=== PATIENT | female | born 1985 | race Caucasian/White ===

== ENCOUNTER 2020-09-24 13:01 | Emergency (ER) | payer MEDICAID ==
[2020-09-24] MEDS ORDERED: DOXEPIN 10 MG CAPSULE PO STA (14:23)
[2020-09-24] MEDS ORDERED: predniSONE 20 MG TABLET PO STA (14:23)
--- NOTE | 2020-09-24 14:25 | ED Physician Documentation ---
PD HPI SKIN - Stated complaint Stated Complaint: ALLERGIC REACTION - Chief complaint Chief Complaint: Allergic Rx - History obtained from History obtained from: Patient - Additional information Additional information: 35-year-old woman developed bilateral periorbital edema and eye burning after swimming at the pool yesterday. She is never had this before. No angioedema of the oral area, no shortness of breath. No possibility of . Review of Systems Constitutional: reports: Reviewed and negative Eyes: reports: Reviewed and negative Ears: reports: Reviewed and negative Nose: reports: Reviewed and negative Throat: reports: Reviewed and negative PD PAST MEDICAL HISTORY - Present Medications Home Medications: Ambulatory Orders Medication Instructions Recorded Confirmed Doxepin [SINEquan] 10 mg PO TID PRN #20 cap 09/24/20 predniSONE [Deltasone] 60 mg PO DAILY 5 Days #15 tablet 09/24/20 - Allergies Allergies/Adverse Reactions: Allergies Allergy/AdvReac Type Severity Reaction Status Date / Time No Known Drug Allergies Allergy Verified 09/24/20 13:20 PD ED PE NORMAL - Vitals Vital signs reviewed: Yes - General General: Alert and oriented X 3, No acute distress - HEENT HEENT: PERRL (She has angioedema of the bilateral periorbital area which is mild to moderate, no sign of infection.) - Cardiac Cardiac: RRR, No murmur - Respiratory Respiratory: Clear bilaterally - Abdomen Abdomen: Non tender - Derm Derm: No rash - Neuro Neuro: Alert and oriented X 3, Normal speech Results - Vitals Vitals: Vital Signs - 24 hr 09/24/20 13:20 Temperature 36.5 C Heart Rate 60 Respiratory 16 Rate Blood Pressure 130/66 O2 Saturation 100 Oxygen O2 Source Room air Departure - Departure Disposition: 01 Home, Self Care Clinical Impression: Allergic angioedema Qualifiers: Encounter type: initial encounter Qualified Code(s): T78.3XXA - Angioneurotic edema, initial encounter Condition: Good Record reviewed to determine appropriate education?: Yes Instructions: ED Allergic Reaction General Other Prescriptions: predniSONE [Deltasone] 60 mg PO DAILY 5 Days #15 tablet Doxepin [SINEquan] 10 mg PO TID PRN #20 cap PRN Reason: Itching Comments: Do not drink or drive while taking doxepin, the anti-itching medication. Return if worsening.
[2020-09-24 14:46] VITALS: BP 124/66
== END 2020-09-24 14:46 | disposition home or self-care (01) ==
LOC: ED 13:01
DX: T78.3XXA Angioneurotic edema, initial encounter (principal)
CPT/HCPCS: 99282; 99284; A9270; J7512

== ENCOUNTER 2020-12-26 19:55 | Emergency (ER) | payer MEDICAID ==
[2020-12-26] MEDS ORDERED: SODIUM CHLORIDE 0.9% 1,000 ML IV STA (21:24)
[2020-12-26] MEDS ORDERED: ACETAMINOPHEN 325 MG TABLET PO STA (21:24)
[2020-12-26] MEDS ORDERED: KETOROLAC 15 MG/ML VIAL IVP STA (21:24)
[2020-12-26] MEDS ORDERED: METOCLOPRAMIDE 10 MG/2 ML VIAL IVP STA (21:25)
[2020-12-26] MEDS ORDERED: diphenhydrAMINE INJ 50 MG/ML VIAL IVP STA (21:25)
--- NOTE | 2020-12-26 21:35 | ED Physician Documentation ---
History of Present Illness - Stated complaint Stated Complaint: FATIGUE,H/A,GENERAL WEAKNESS - Chief complaint Chief Complaint: General - History obtained from History obtained from: Patient - Additonal information Additional information: 36-year-old woman with no past medical history, past surgical history cholecystectomy and 2 C-sections, presents with nausea and vomiting last night and today that is nonbloody nonbilious as well as 5 episodes of diarrhea yesterday. Patient also endorsing bilateral frontal moderate severity aching constant gradual onset headache associated with photophobia. Generalized malaise, fatigue, chills, loss of appetite since yesterday as well. patient had Beepi covid vaccine in May. currently works in a pharmacy. no known sick contacts otherwise. Review of Systems Ten Systems: 10 systems reviewed and negative Constitutional: reports: Chills, Myalgias, Fatigue Eyes: reports: Photophobia Nose: denies: Rhinorrhea / runny nose, Congestion Throat: denies: Sore throat Cardiac: denies: Chest pain / pressure Respiratory: denies: Dyspnea, Cough GI: reports: Nausea, Vomiting, Diarrhea. denies: Abdominal Pain : denies: Dysuria, Frequency, Hematuria PD PAST MEDICAL HISTORY - Past Medical History Past Medical History: Yes Cardiovascular: None Respiratory: None Neuro: None Endocrine/Autoimmune: None GI: None SENIOR SALES OPERATIONS MANAGER: None : None HEENT: None Psych: None Musculoskeletal: None Derm: None - Past Surgical History Past Surgical History: Yes General: Cholecystectomy /SENIOR SALES OPERATIONS MANAGER: section - Present Medications Home Medications: Ambulatory Orders Medication Instructions Recorded Confirmed Ketorolac [Toradol] 10 mg PO Q6H PRN #30 tablet 12/26/20 - Allergies Allergies/Adverse Reactions: Allergies Allergy/AdvReac Type Severity Reaction Status Date / Time No Known Drug Allergies Allergy Verified 12/26/20 20:13 - Social History Does the pt smoke?: No Smoking Status: Never smoker Does the pt drink ETOH?: No Does the pt have substance abuse?: No - Immunizations Immunizations are current?: Yes PD ED PE NORMAL - Vitals Vital signs reviewed: Yes - General General: Alert and oriented X 3, No acute distress, Well developed/nourished, Other - HEENT HEENT: Atraumatic, PERRL, EOMI, Moist mucous membranes - Neck Neck: Supple, no meningeal sign - Cardiac Cardiac: RRR - Respiratory Respiratory: No respiratory distress, Clear bilaterally - Abdomen Abdomen: Non tender, Non distended - Derm Derm: Normal color, Warm and dry - Neuro Neuro: Alert and oriented X 3, early childhood specialist 2-12 intact, No motor deficit, No sensory deficit, Normal speech - Psych Psych: Normal mood, Normal affect Results - Vitals Vitals: Vital Signs - 24 hr 12/26/20 12/26/20 12/26/20 20:13 20:20 22:16 Temperature 36.7 C 36.7 C Heart Rate 54 L 54 L 56 L Respiratory 16 16 16 Rate Blood Pressure 145/60 H 145/60 H 118/76 O2 Saturation 97 97 100 Oxygen O2 Source Room air - Labs Labs: Laboratory Tests 12/26/20 12/26/20 12/26/20 21:32 21:36 21:36 WBC 8.1 RBC 4.86 Hgb 14.0 Hct 43.1 MCV 88.7 MCH 28.8 MCHC 32.5 RDW 13.6 Plt Count 245 MPV 11.1 H Neut # (Auto) 3.8 Lymph # (Auto) 3.4 Morrow # (Auto) 0.7 Eos # (Auto) 0.2 Baso # (Auto) 0.0 Absolute Nucleated RBC 0.00 Nucleated RBC % 0.0 Sodium 138 Potassium 3.9 Chloride 104 Carbon Dioxide 26 Anion Gap 8.0 BUN 18 Creatinine 0.8 Estimated GFR (MDRD) 82 L Glucose 86 Calcium 9.5 Total Bilirubin 0.5 AST 31 ALT 71 H Alkaline Phosphatase 63 Total Protein 7.6 Albumin 4.3 Globulin 3.3 Albumin/Globulin Ratio 1.3 Lipase 33 Urine HCG, Qual NEGATIVE PD MEDICAL DECISION MAKING - ED course ED course: 35yF presents with n/v nbnb and diarrhea as well as headache and generalized malaise, without any acute abd pain. afebrile in the ED. possible viral syndrome vs migraine symptoms. will treat symptomatically and reevaluate. Patient feels significant relief s/p symptomatic treatment and is requesting to go home to rest. return precautions discussed. plan to f/u with pmd. Departure - Departure Disposition: 01 Home, Self Care Clinical Impression: Headache, Nausea and vomiting, Diarrhea, Fatigue Condition: Good Instructions: ED Nausea Vomiting, Headaches Migraine and Tension Prescriptions: Ketorolac [Toradol] 10 mg PO Q6H PRN #30 tablet PRN Reason: Pain Comments: You are seen in the emergency department for nausea, vomiting, headache, body aches, and fatigue. Your lab work did not show any emergent findings. You are not . A covid test was sent that will result in 2-3 days. Please stay home until that time. Please return to the emergency department you have any new or worsening symptoms or other concerns. Follow-up with your primary doctor. Forms: Activity restrictions
[2020-12-26 21:42] LABS: BASOPHILS % (AUTO) 0.4 %; EOSINOPHILS # (AUTO) 0.2 10^3/uL (0.0-0.7); EOSINOPHILS % (AUTO) 2.2 %; HCT - HEMATOCRIT 43.1 % (37.0-47.0); LYMPHOCYTES # (AUTO) 3.4 10^3/uL (1.5-3.5); LYMPHOCYTES % (AUTO) 41.5 %; MEAN CORPUSCULAR HEMOGLOBIN 28.8 pg (27.0-31.0); MEAN CORPUSCULAR HGB CONC 32.5 g/dL (32.0-36.0); MEAN CORPUSCULAR VOLUME 88.7 fL (81.0-99.0); MEAN PLATELET VOLUME 11.1 fL (7.9-10.8); MONOCYTES # (AUTO) 0.7 10^3/uL (0.0-1.0); MONOCYTES % (AUTO) 8.8 %; NEUTROPHILS # (AUTO) 3.8 10^3/uL (1.5-6.6); PLT - PLATELET COUNT 245 10^3/uL (130-450); RED BLOOD COUNT 4.86 10^6/uL (4.20-5.40); RED CELL DISTRIBUTION WIDTH 13.6 % (12.0-15.0); WHITE BLOOD COUNT 8.1 x10^3/uL (4.8-10.8)
[2020-12-26 21:55] LABS: ALBUMIN 4.3 g/dL (3.2-5.5); ALBUMIN/GLOBULIN RATIO 1.3 (1.0-2.2); BILIRUBIN,TOTAL 0.5 mg/dL (0.2-1.0); CALCIUM 9.5 mg/dL (8.5-10.3); CREATININE 0.8 mg/dL (0.4-1.0); POTASSIUM 3.9 mmol/L (3.5-5.0); TOTAL PROTEIN 7.6 g/dL (6.7-8.2)
[2020-12-26 21:56] LABS: HCG UR QUAL NEGATIVE
[2020-12-26 23:22] VITALS: BP 128/77
== END 2020-12-26 23:23 | disposition home or self-care (01) ==
LOC: ED 19:55
DX: R11.2 Nausea with vomiting, unspecified (principal); R51.9 Headache, unspecified; R19.7 Diarrhea, unspecified; R53.83 Other fatigue; Z20.822 Contact with and (suspected) exposure to COVID-19
CPT/HCPCS: 36415; 80053; 81025; 83690; 85025; 87635; 96361; 96374; 96375; 99283; A9270; J1200; J2765

== ENCOUNTER 2021-09-05 09:39 | Emergency (ER) | payer MEDICAID ==
--- OUTSIDE RECORDS SUMMARY | 2021-09-05 10:02 | EXTERNAL MEDICAL SUMMARY RPT | Continuity of Care Document ---
:1985 Author Organization [facility] Address [address] [place] [address] Phone Allergies No information. Encounters No information. Functional Status No information. Immunizations No information. Medications No information. Problems No information. Procedures No information. Results/Labs test date author facility value unit interpret ation Result panel 1 (unknown) (no (unknown) (unknown) (no value) (units (unk nown) date) unknown) (unknown) (no (unknown) (unknown) [address] [place] [address] (units (unknown) date) unknown) (unknown) (no (unknown) (unknown) [place], [place] (units ( unknown) date) [id number] unknown) (unknown) (no (unknown) (unknown) [facility] (units (unknown) date) unknown) (unknown) (no (unknown) (unknown) Magnetic (units (unkno wn) date) Resonance Report unknown) (unknown) (no (unknown) (unknown) Signed (units (unkno wn) date) unknown) (unknown) (no (unknown) (unknown) (no value) (units (unk nown) date) unknown) (unknown) (no (unknown) (unknown) 06/23/21 (units (unkno wn) date) unknown) (unknown) (no (unknown) (unknown) 1. T6-T8 thoracic (units (unknown) date) spinal cord unknown) syrinx. Recommend neurology and/or neurosurgical (unknown) (no (unknown) (unknown) 2. Foci of (units (unk nown) date) decreased T1 unknown) signal, increased T2 signal and heterogeneous post- (unknown) (no (unknown) (unknown) 3. No abnormal (units (unknown) date) mass or abnormal unknown) postcontrast enhancement identified deep to (unknown) (no (unknown) (unknown) 4. Image quality (units (unknown) date) degraded by unknown) patient motion artifact. (unknown) (no (unknown) (unknown) 5th rib which may (units (unknown) date) represent atypical unknown) hemangiomas versus metastatic lesions. (unknown) (no (unknown) (unknown) Alignment and (units ( unknown) date) curvature: There unknown) is normal bony alignment. (unknown) (no (unknown) (unknown) Approved by: (units (u nknown) date) Cheri Sauceda unknown) MD Elizabeth, PhD on 06/26/2021 at 11:19 (unknown) (no (unknown) (unknown) COMPARISON: (units (un known) date) None. unknown) (unknown) (no (unknown) (unknown) Dictated by: (units (u nknown) date) Cheri Sauceda unknown) MD Elizabeth, PhD on 06/26/2021 at 11:01 (unknown) (no (unknown) (unknown) FINDINGS: (units (unkn own) date) unknown) (unknown) (no (unknown) (unknown) Findings and (units (u nknown) date) recommendations unknown) discussed with Dr. Washington on June 26, 2021 at 11:15 (unknown) (no (unknown) (unknown) IMPRESSION: (units (un known) date) unknown) (unknown) (no (unknown) (unknown) INDICATIONS: (units (u nknown) date) Localized unknown) swelling, mass and lump, unspecified (unknown) (no (unknown) (unknown) Image quality: (units (unknown) date) Degraded by unknown) patient motion artifact. (unknown) (no (unknown) (unknown) Marrow: (units (unkno wn) date) Hemangiomas noted unknown) in the T3, T8 and T12 vertebral bodies. Foci of (unknown) (no (unknown) (unknown) Miscellaneous: (units (unknown) date) Central canal and unknown) foramina appear widely patent at all scanned (unknown) (no (unknown) (unknown) Noncontrast (units (un known) date) sagittal T1 spin unknown) echo and T2 fast spin echo, sagittal STIR, axial (unknown) (no (unknown) (unknown) Paraspinous soft (units (unknown) date) tissues: No unknown) paravertebral masses or abnormal enhancement. No (unknown) (no (unknown) (unknown) Spinal cord: (units (u nknown) date) There is a 0.7 x unknown) 0.8 x 3.9 centimeter syrinx involving the (unknown) (no (unknown) (unknown) TECHNIQUE: (units (unk nown) date) unknown) (unknown) (no (unknown) (unknown) and sagittal T1 (units (unknown) date) spin echo with fat unknown) saturation through the thoracic spine. (unknown) (no (unknown) (unknown) consultation. (units ( unknown) date) unknown) (unknown) (no (unknown) (unknown) cord level of the (units (unknown) date) T6-T8 vertebral unknown) bodies. No postcontrast enhancement is (unknown) (no (unknown) (unknown) decreased T1 and (units (unknown) date) heterogeneous unknown) post-contrast enhancement noted in the T5, T6 (unknown) (no (unknown) (unknown) enhancement noted (units (unknown) date) in the T5, T6 and unknown) T9 vertebral bodies and the medial margin (unknown) (no (unknown) (unknown) fast spin echo (units (unknown) date) through the unknown) thoracic spine. After the administration of (unknown) (no (unknown) (unknown) increased T2 (units (u nknown) date) signal and unknown) heterogeneous post-contrast enhancement in the medial (unknown) (no (unknown) (unknown) mass identified (units (unknown) date) deep to localizer unknown) placed over the right paramedian posterior (unknown) (no (unknown) (unknown) motion artifact. (units (unknown) date) unknown) (unknown) (no (unknown) (unknown) placed over the (units (unknown) date) right paramedian unknown) back in the region of clinically palpable (unknown) (no (unknown) (unknown) scan of the (units (un known) date) thoracic spine and unknown) nuclear medicine whole-body bone scan. (unknown) (no (unknown) (unknown) soft tissues at (units (unknown) date) the level of the unknown) T10 vertebral body (unknown) (no (unknown) (unknown) the left 5th rib. (units (unknown) date) No acute unknown) vertebral body compression fractures. (unknown) (no (unknown) (unknown) the thoracic cord (units (unknown) date) syrinx, however unknown) subtle enhancement is not completely excluded (unknown) (no (unknown) (unknown) vertebral bodies (units (unknown) date) which may unknown) represent metastatic lesions or hemangiomas. There (unknown) (no (unknown) (unknown) #: [id number] (units ( unknown) date) unknown) (unknown) (no (unknown) (unknown) Accession Number: (units (unknown) date) [id number] unknown) (unknown) (no (unknown) (unknown) Age/Sex: 35 / F (units (unknown) date) Date of Service: unknown) (unknown) (no (unknown) (unknown) : 1985 (units (unknown) date) Acct:[id number] unknown) (unknown) (no (unknown) (unknown) Loc: MRI (units (unkno wn) date) unknown) (unknown) (no (unknown) (unknown) Ordering (units (unkno wn) date) Provider: unknown) Joyce Chavez MD (unknown) (no (unknown) (unknown) PROCEDURE: MR (units (unknown) date) THORACIC SPINE unknown) WO/W CON (unknown) (no (unknown) (unknown) Patient: (units (unkno wn) date) Jenni Wu unknown) A MR (unknown) (no (unknown) (unknown) Procedure: MR (units ( unknown) date) thoracic spine unknown) wo/w con (unknown) (no (unknown) (unknown) Recommend CT (units (u nknown) date) unknown) (unknown) (no (unknown) (unknown) T1 and T2 (units (unkn own) date) unknown) (unknown) (no (unknown) (unknown) a.m.. (units (unkno wn) date) unknown) (unknown) (no (unknown) (unknown) abnormal (units (unkno wn) date) unknown) (unknown) (no (unknown) (unknown) and T9 (units (unkno wn) date) unknown) (unknown) (no (unknown) (unknown) associated with (units (unknown) date) unknown) (unknown) (no (unknown) (unknown) contrast (units (unkno wn) date) unknown) (unknown) (no (unknown) (unknown) contrast, axial (units (unknown) date) unknown) (unknown) (no (unknown) (unknown) due to (units (unkno wn) date) unknown) (unknown) (no (unknown) (unknown) increased T2, (units ( unknown) date) unknown) (unknown) (no (unknown) (unknown) is also (units (unkno wn) date) unknown) (unknown) (no (unknown) (unknown) lesion. (units (unkno wn) date) unknown) (unknown) (no (unknown) (unknown) levels. (units (unkno wn) date) unknown) (unknown) (no (unknown) (unknown) localizer (units (unkn own) date) unknown) (unknown) (no (unknown) (unknown) margin of (units (unkn own) date) unknown) (unknown) (no (unknown) (unknown) of the left (units (un known) date) unknown) (unknown) (no (unknown) (unknown) paraspinous (units (un known) date) unknown) (unknown) (no (unknown) (unknown) thoracic spinal (units (unknown) date) unknown) Result panel 2 (unknown) (no (unknown) (unknown) (no value) (units (unk nown) date) unknown) (unknown) (no (unknown) (unknown) [address] [place] [address] (units (unknown) date) unknown) (unknown) (no (unknown) (unknown) [place], [place] (units ( unknown) date) [id number] unknown) (unknown) (no (unknown) (unknown) CT Scan Report (units (unknown) date) unknown) (unknown) (no (unknown) (unknown) [facility] (units (unknown) date) unknown) (unknown) (no (unknown) (unknown) Signed (units (unkno wn) date) unknown) (unknown) (no (unknown) (unknown) (no value) (units (unk nown) date) unknown) (unknown) (no (unknown) (unknown) 06/30/21 (units (unkno wn) date) unknown) (unknown) (no (unknown) (unknown) Accentuated (units (un known) date) thoracic kyphosis unknown) is seen. No focal AP alignment abnormality is (unknown) (no (unknown) (unknown) After the (units (unkn own) date) administration of unknown) intravenous Isovue contrast, 3 mm thick sections (unknown) (no (unknown) (unknown) Approved by: (units (u nknown) date) Kevin Thomas, unknown) Karmen on 06/30/2021 at 17:17 (unknown) (no (unknown) (unknown) Bones: In this (units (unknown) date) patient with a unknown) recent prior MRI, scrutiny is given to the (unknown) (no (unknown) (unknown) COMPARISON: (units (un known) date) [facility], unknown) MR, MR THORACIC SPINE WO/W CON, 06/23/2021, 19:45. (unknown) (no (unknown) (unknown) Dictated by: (units (u nknown) date) evan Marquez M.D. on 06/30/2021 at 17:10 (unknown) (no (unknown) (unknown) FINDINGS: (units (unkn own) date) unknown) (unknown) (no (unknown) (unknown) For radiation (units ( unknown) date) dose reduction, unknown) the following was used: automated exposure (unknown) (no (unknown) (unknown) IMPRESSION: T3 (units (unknown) date) vertebral body unknown) hemangioma and medial left 5th rib likely (unknown) (no (unknown) (unknown) INDICATIONS: (units (u nknown) date) LOCALIZED unknown) SWELLING,MASS AND LUMP, UNSPECIFIED (unknown) (no (unknown) (unknown) If clinically (units ( unknown) date) appropriate, a unknown) follow-up nuclear medicine bone scan could be (unknown) (no (unknown) (unknown) Image quality: (units (unknown) date) Excellent. unknown) (unknown) (no (unknown) (unknown) No definite CT (units (unknown) date) correlate is seen unknown) for the other MRI visible lesions, although (unknown) (no (unknown) (unknown) Soft tissues: No (units (unknown) date) significant soft unknown) tissue abnormality is seen. Cholecystectomy (unknown) (no (unknown) (unknown) TECHNIQUE: (units (unk nown) date) unknown) (unknown) (no (unknown) (unknown) There is (units (unkno wn) date) thickening seen of unknown) the medial left 5th rib, as on series 2, image 31, (unknown) (no (unknown) (unknown) additional (units (unk nown) date) workup. unknown) (unknown) (no (unknown) (unknown) as within the T3 (units (unknown) date) vertebral body. unknown) On this study, no significant bony lesions or (unknown) (no (unknown) (unknown) bodies that had (units (unknown) date) questionable unknown) vertebral body hemangiomas. Within the T5, T6 and (unknown) (no (unknown) (unknown) enhancement can (units (unknown) date) be seen to unknown) correspond to the vertebral body lesions seen on the (unknown) (no (unknown) (unknown) levels, potential (units (unknown) date) prominent unknown) trabeculation can be seen. However, this is not as (unknown) (no (unknown) (unknown) potential (units (unkn own) date) prominent unknown) trabeculations seen at a few of these sites. A benign (unknown) (no (unknown) (unknown) prior MRI, other (units (unknown) date) than the T3 unknown) lesion. (unknown) (no (unknown) (unknown) representing a (units (unknown) date) hemangioma. unknown) (unknown) (no (unknown) (unknown) seen. (units (unkno wn) date) unknown) (unknown) (no (unknown) (unknown) suspected, such (units (unknown) date) as atypical unknown) vertebral body hemangiomas. (unknown) (no (unknown) (unknown) through the (units (un known) date) levels of unknown) interest. Sagittal and coronal reformats were then (unknown) (no (unknown) (unknown) #: [id number] (units ( unknown) date) unknown) (unknown) (no (unknown) (unknown) Accession Number: (units (unknown) date) [id number] unknown) (unknown) (no (unknown) (unknown) Age/Sex: 35 / F (units (unknown) date) Date of Service: unknown) (unknown) (no (unknown) (unknown) : 1985 (units (unknown) date) Acct:[id number] unknown) (unknown) (no (unknown) (unknown) Loc: CT (units (unkno wn) date) unknown) (unknown) (no (unknown) (unknown) Ordering (units (unkno wn) date) Provider: unknown) Joyce Chavez MD (unknown) (no (unknown) (unknown) PROCEDURE: CT (units (unknown) date) THORACIC SPINE W unknown) CON (unknown) (no (unknown) (unknown) Patient: (units (unkno wn) date) Jenni Wu unknown) A MR (unknown) (no (unknown) (unknown) Procedure: CT (units ( unknown) date) thoracic spine w unknown) con (unknown) (no (unknown) (unknown) T9 (units (unkno wn) date) unknown) (unknown) (no (unknown) (unknown) abnormal (units (unkno wn) date) unknown) (unknown) (no (unknown) (unknown) acquired (units (unkno wn) date) unknown) (unknown) (no (unknown) (unknown) clips are (units (unkn own) date) unknown) (unknown) (no (unknown) (unknown) considered for (units (unknown) date) unknown) (unknown) (no (unknown) (unknown) constructed. (units (u nknown) date) unknown) (unknown) (no (unknown) (unknown) control. (units (unkno wn) date) unknown) (unknown) (no (unknown) (unknown) hemangioma. (units (un known) date) unknown) (unknown) (no (unknown) (unknown) likely (units (unkno wn) date) unknown) (unknown) (no (unknown) (unknown) process is (units (unk nown) date) unknown) (unknown) (no (unknown) (unknown) recent (units (unkno wn) date) unknown) (unknown) (no (unknown) (unknown) seen. (units (unkno wn) date) unknown) (unknown) (no (unknown) (unknown) there is (units (unkno wn) date) unknown) (unknown) (no (unknown) (unknown) vertebral (units (unkn own) date) unknown) (unknown) (no (unknown) (unknown) well seen (units (unkn own) date) unknown) Result panel 3 (unknown) (no (unknown) (unknown) (no value) (units (unk nown) date) unknown) (unknown) (no (unknown) (unknown) [address] [place] [address] (units (unknown) date) unknown) (unknown) (no (unknown) (unknown) [place], [place] (units ( unknown) date) [id number] unknown) (unknown) (no (unknown) (unknown) [facility] (units (unknown) date) unknown) (unknown) (no (unknown) (unknown) Nuclear Medicine (units (unknown) date) Report unknown) (unknown) (no (unknown) (unknown) Signed (units (unkno wn) date) unknown) (unknown) (no (unknown) (unknown) (no value) (units (unk nown) date) unknown) (unknown) (no (unknown) (unknown) 08/04/21 (units (unkno wn) date) unknown) (unknown) (no (unknown) (unknown) Approved by: (units (u nknown) date) Sammie Kenney, unknown) Karmen on 08/04/2021 at 17:34 (unknown) (no (unknown) (unknown) BREAST RT (units (unkn own) date) LIMITED, unknown) 04/12/2021, 13:56. (unknown) (no (unknown) (unknown) COMPARISON: (units (un known) date) [facility], unknown) CT, CT THORACIC SPINE W CON, 06/30/2021, 17:53. (unknown) (no (unknown) (unknown) Delayed (units (unkno wn) date) whole-body unknown) scintigrams were obtained approximately 3-4 hours after (unknown) (no (unknown) (unknown) Dictated by: (units (u nknown) date) Sammie Kenney, homar) Karmen on 08/04/2021 at 17:29 (unknown) (no (unknown) (unknown) FINDINGS: (units (unkn own) date) Physiologic unknown) uptake is noted within the kidneys and bladder. (unknown) (no (unknown) (unknown) Hospital, MR, MR (units (unknown) date) THORACIC SPINE unknown) WO/W CON, 06/23/2021, 19:45. [facility], (unknown) (no (unknown) (unknown) IMPRESSION: (units (un known) date) unknown) (unknown) (no (unknown) (unknown) INDICATIONS: (units (u nknown) date) Localized unknown) swelling, mass and lump, unspecified (unknown) (no (unknown) (unknown) Mild symmetric (units (unknown) date) increased uptake unknown) within the 9th anterior ribs bilaterally. (unknown) (no (unknown) (unknown) No obtained (units (un known) date) within the spine unknown) corresponding to areas of noted abnormality on (unknown) (no (unknown) (unknown) RADIOPHARMACEUTI (units (unknown) date) TERESITA: 20.4 mCi unknown) Tc-99m MDP IV. (unknown) (no (unknown) (unknown) TECHNIQUE: (units (unk nown) date) unknown) (unknown) (no (unknown) (unknown) Uptake within (units ( unknown) date) the knees and unknown) feet consistent with degenerative change. (unknown) (no (unknown) (unknown) feet. (units (unkno wn) date) Additional left unknown) and right oblique views of the pelvis were obtained. (unknown) (no (unknown) (unknown) further (units (unkno wn) date) evaluation. unknown) (unknown) (no (unknown) (unknown) injection of (units (u nknown) date) radiotracer. unknown) Anterior and posterior views were acquired from (unknown) (no (unknown) (unknown) is noted at the (units (unknown) date) knees bilaterally unknown) as well as small bones of the feet. There is (unknown) (no (unknown) (unknown) noted within the (units (unknown) date) spine unknown) corresponding to abnormalities (unknown) (no (unknown) (unknown) symmetry, this (units (unknown) date) is suspected to unknown) be artifactual. However, recommend x-ray rib (unknown) (no (unknown) (unknown) uptake (units (unkno wn) date) symmetrically unknown) within the 9th ribs anteriorly. No areas of abnormal (unknown) (no (unknown) (unknown) #: [id number] (units ( unknown) date) unknown) (unknown) (no (unknown) (unknown) Accession (units (unkn own) date) Number: unknown) [id number] (unknown) (no (unknown) (unknown) Age/Sex: 35 / F (units (unknown) date) Date of unknown) Service: (unknown) (no (unknown) (unknown) : 1985 (units (unknown) date) Acct:[id number] unknown) (unknown) (no (unknown) (unknown) Given (units (unkno wn) date) unknown) (unknown) (no (unknown) (unknown) Increased uptake (units (unknown) date) unknown) (unknown) (no (unknown) (unknown) [place] (units (unkno wn) date) unknown) (unknown) (no (unknown) (unknown) Loc: [facility] (units (unkn own) date) unknown) (unknown) (no (unknown) (unknown) Ordering (units (unkno wn) date) Provider: unknown) Joyce Chavez MD (unknown) (no (unknown) (unknown) PROCEDURE: NM (units (unknown) date) BONE SCAN WHOLE unknown) BODY (unknown) (no (unknown) (unknown) Patient: (units (unkno wn) date) Cierra Wu unknown) h A MR (unknown) (no (unknown) (unknown) Procedure: NM (units ( unknown) date) bone scan whole unknown) body (unknown) (no (unknown) (unknown) US, US (units (unkno wn) date) unknown) (unknown) (no (unknown) (unknown) increased (units (unkn own) date) unknown) (unknown) (no (unknown) (unknown) intravenous (units (un known) date) unknown) (unknown) (no (unknown) (unknown) prior exams. (units (u nknown) date) unknown) (unknown) (no (unknown) (unknown) series for (units (unk nown) date) unknown) (unknown) (no (unknown) (unknown) uptake are (units (unk nown) date) unknown) (unknown) (no (unknown) (unknown) vertex to (units (unkn own) date) unknown) Result panel 4 (unknown) (no (unknown) (unknown) (no value) (units (unk nown) date) unknown) (unknown) (no (unknown) (unknown) [address] [place] [address] (units (unknown) date) unknown) (unknown) (no (unknown) (unknown) ALANIS Pierre (units ( unknown) date) [id number] unknown) (unknown) (no (unknown) (unknown) [facility] (units (unknown) date) unknown) (unknown) (no (unknown) (unknown) Magnetic (units (unkno wn) date) Resonance Report unknown) (unknown) (no (unknown) (unknown) Signed (units (unkno wn) date) unknown) (unknown) (no (unknown) (unknown) (no value) (units (unk nown) date) unknown) (unknown) (no (unknown) (unknown) 08/25/21 (units (unkno wn) date) unknown) (unknown) (no (unknown) (unknown) Alignment and (units ( unknown) date) Curvature: There unknown) is mild straightening of normal cervical (unknown) (no (unknown) (unknown) Alignment and (units ( unknown) date) Curvature: There unknown) is normal bony alignment. (unknown) (no (unknown) (unknown) Approved by: (units (u nknown) date) Sammie Kenney, unknown) M.DClaudia on 08/28/2021 at 11:18 (unknown) (no (unknown) (unknown) Approved by: (units (u nknown) date) Sammie Kenney, unknown) M.DClaudia on 08/28/2021 at 12:18 (unknown) (no (unknown) (unknown) Bone Marrow: (units (u nknown) date) Marrow unknown) demonstrates normal overall signal. (unknown) (no (unknown) (unknown) Bone Marrow: (units (u nknown) date) Marrow is of unknown) normal overall signal. Increased T1 and T2 signal (unknown) (no (unknown) (unknown) C2-C3: No disc (units (unknown) date) bulge, spinal unknown) stenosis or foraminal narrowing. (unknown) (no (unknown) (unknown) C3-C4: No disc (units (unknown) date) bulge, spinal unknown) stenosis or foraminal narrowing. (unknown) (no (unknown) (unknown) C4-C5: Minimal (units (unknown) date) disc bulge unknown) without spinal stenosis. Minimal left foraminal (unknown) (no (unknown) (unknown) C5-C6: Minimal (units (unknown) date) disc bulge unknown) without spinal stenosis or foraminal narrowing. (unknown) (no (unknown) (unknown) C6-C7: Minimal (units (unknown) date) disc bulge unknown) without spinal stenosis or foraminal narrowing. (unknown) (no (unknown) (unknown) C7-T1: No disc (units (unknown) date) bulge, spinal unknown) stenosis or foraminal narrowing. (unknown) (no (unknown) (unknown) COMPARISON: (units (un known) date) [facility], unknown) NM, NM BONE SCAN WHOLE BODY, 08/04/2021, 14:07. (unknown) (no (unknown) (unknown) COMPARISON: (units (un known) date) None. unknown) (unknown) (no (unknown) (unknown) Dictated by: (units (u nknown) date) homar Gupta) M.DClaudia on 08/28/2021 at 11:11 (unknown) (no (unknown) (unknown) Dictated by: (units (u nknown) date) Sammie Kenney unknown) MRosi on 08/28/2021 at 11:51 (unknown) (no (unknown) (unknown) Discs: Mild (units (un known) date) desiccation is unknown) present L5-S1. (unknown) (no (unknown) (unknown) Discs: Mild (units (un known) date) desiccation is unknown) present at C5-6. (unknown) (no (unknown) (unknown) FINDINGS: (units (unkn own) date) unknown) (unknown) (no (unknown) (unknown) Hospital, CT, CT (units (unknown) date) THORACIC SPINE W unknown) CON, 06/30/2021, 17:53. [facility], MR, (unknown) (no (unknown) (unknown) IMPRESSION: (units (un known) date) unknown) (unknown) (no (unknown) (unknown) INDICATIONS: (units (u nknown) date) LUMBAR PAIN, unknown) CERVICAL PAIN (unknown) (no (unknown) (unknown) Image quality: (units (unknown) date) Excellent. unknown) (unknown) (no (unknown) (unknown) L1-L2: No disc (units (unknown) date) bulge, spinal unknown) stenosis or foraminal narrowing. (unknown) (no (unknown) (unknown) L2-L3: No disc (units (unknown) date) bulge, spinal unknown) stenosis or foraminal narrowing. (unknown) (no (unknown) (unknown) L3-L4: No disc (units (unknown) date) bulge, spinal unknown) stenosis or foraminal narrowing. (unknown) (no (unknown) (unknown) L4-L5: No disc (units (unknown) date) bulge, spinal unknown) stenosis or foraminal narrowing. (unknown) (no (unknown) (unknown) L5-S1: Mild (units (u nknown) date) disc bulge unknown) without spinal stenosis. Moderate left and mild right (unknown) (no (unknown) (unknown) Minimal early (units ( unknown) date) degenerative unknown) changes as above. (unknown) (no (unknown) (unknown) Minimal early (units ( unknown) date) degenerative unknown) changes most notable at L5-S1 as above. (unknown) (no (unknown) (unknown) Noncontrast (units (un known) date) sagittal T1 spin unknown) echo and T2 fast echo, sagittal STIR, and T2 fast (unknown) (no (unknown) (unknown) Noncontrast (units (un known) date) sagittal T1 spin unknown) echo and T2 fast spin echo, sagittal STIR, (unknown) (no (unknown) (unknown) Paraspinous Soft (units (unknown) date) Tissues: No unknown) paravertebral masses. (unknown) (no (unknown) (unknown) Paraspinous Soft (units (unknown) date) Tissues: No unknown) paravertebral masses. Prevertebral soft tissues (unknown) (no (unknown) (unknown) Spinal Cord: (units (u nknown) date) Conus medullaris unknown) terminates at the L1 level. Visualized cord (unknown) (no (unknown) (unknown) Spinal Cord: (units (u nknown) date) Visualized spinal unknown) cord has normal size and signal. No cerebellar (unknown) (no (unknown) (unknown) TECHNIQUE: (units (unk nown) date) unknown) (unknown) (no (unknown) (unknown) THORACIC SPINE (units (unknown) date) WO/W CON, unknown) 06/23/2021, 19:45. (unknown) (no (unknown) (unknown) cervical spine. (units (unknown) date) unknown) (unknown) (no (unknown) (unknown) fractures. (units (unk nown) date) unknown) (unknown) (no (unknown) (unknown) herniation. (units (un known) date) unknown) (unknown) (no (unknown) (unknown) in thickness. (units ( unknown) date) unknown) (unknown) (no (unknown) (unknown) may be (units (unkno wn) date) performed. unknown) (unknown) (no (unknown) (unknown) narrowing with (units (unknown) date) mild facet unknown) hypertrophy. (unknown) (no (unknown) (unknown) normal signal (units ( unknown) date) and size. unknown) (unknown) (no (unknown) (unknown) sagittal T2 fast (units (unknown) date) spin echo, and unknown) axial gradient echo or T2 fast spin echo (unknown) (no (unknown) (unknown) through the (units (un known) date) lumbar spine. In unknown) cases with scoliosis, additional coronal T2 fast (unknown) (no (unknown) (unknown) within the S2 (units ( unknown) date) vertebral body unknown) likely hemangiomas. No acute vertebral body (unknown) (no (unknown) (unknown) #: [id number] (units ( unknown) date) unknown) (unknown) (no (unknown) (unknown) Accession (units (unkn own) date) Number: unknown) [id number] (unknown) (no (unknown) (unknown) Accession (units (unkn own) date) Number: unknown) [id number] (unknown) (no (unknown) (unknown) Age/Sex: 35 / F (units (unknown) date) Date of unknown) Service: (unknown) (no (unknown) (unknown) : 1985 (units (unknown) date) Acct:[id number] unknown) (unknown) (no (unknown) (unknown) [place] (units (unkno wn) date) unknown) (unknown) (no (unknown) (unknown) Loc: MRI (units (unkno wn) date) unknown) (unknown) (no (unknown) (unknown) MR (units (unkno wn) date) unknown) (unknown) (no (unknown) (unknown) Ordering (units (unkno wn) date) Provider: unknown) Saadia Velásquez (unknown) (no (unknown) (unknown) PROCEDURE: MR (units (unknown) date) CERVICAL SPINE WO unknown) CON (unknown) (no (unknown) (unknown) PROCEDURE: MR (units (unknown) date) LUMBAR SPINE WO unknown) CON (unknown) (no (unknown) (unknown) Patient: (units (unkno wn) date) Cierra Wu unknown) h A MR (unknown) (no (unknown) (unknown) Procedure: MR (units ( unknown) date) cervical spine wo unknown) con (unknown) (no (unknown) (unknown) Procedure: MR (units ( unknown) date) lumbar spine wo unknown) con (unknown) (no (unknown) (unknown) are normal (units (unk nown) date) unknown) (unknown) (no (unknown) (unknown) are present (units (un known) date) unknown) (unknown) (no (unknown) (unknown) compression (units (un known) date) unknown) (unknown) (no (unknown) (unknown) curvature. (units (unk nown) date) unknown) (unknown) (no (unknown) (unknown) demonstrates (units (u nknown) date) unknown) (unknown) (no (unknown) (unknown) foraminal (units (unkn own) date) unknown) (unknown) (no (unknown) (unknown) foraminal (units (unkn own) date) oblique unknown) (unknown) (no (unknown) (unknown) narrowing. (units (unk nown) date) unknown) (unknown) (no (unknown) (unknown) spin echo (units (unkn own) date) unknown) (unknown) (no (unknown) (unknown) through the (units (un known) date) unknown) (unknown) (no (unknown) (unknown) tonsillar (units (unkn own) date) unknown) Social History No information. Vital Signs No information.
--- NOTE | 2021-09-05 11:35 | ED Physician Documentation ---
History of Present Illness - Stated complaint Stated Complaint: SOA/COUGH/SWEATING - Chief complaint Chief Complaint: General - Additonal information Additional information: 36-year-old female presents emergency department for evaluation of 2 days cough sinus congestion, pressure, headache and waking up saturated in sweat. Symptoms began 2 days ago. She thinks she has a sinus infection. Has taken 2 rapid COVID test which were negative. She is mostly to be concerned about nighttime coughing eliciting emesis. Non-smoker. No history of hypertension diabetes or pulmonary disorders. She is new to the [facility] transferring care from [place]. She has taken DayQuil/NyQuil with limited relief of symptoms Review of Systems Constitutional: denies: Fever, Chills Eyes: reports: Reviewed and negative Ears: reports: Reviewed and negative Nose: reports: Rhinorrhea / runny nose, Congestion Throat: reports: Sore throat Cardiac: reports: Reviewed and negative Respiratory: reports: Cough. denies: Dyspnea GI: reports: Vomiting : reports: Reviewed and negative Skin: reports: Reviewed and negative PD PAST MEDICAL HISTORY - Past Medical History Past Medical History: Yes Cardiovascular: None Respiratory: None Neuro: None Endocrine/Autoimmune: None GI: None PRECISION ASSEMBLY INSPECTOR: None : None HEENT: None Psych: Depression, Anxiety Musculoskeletal: Chronic back pain, Other Derm: None - Past Surgical History Past Surgical History: Yes General: Cholecystectomy /PRECISION ASSEMBLY INSPECTOR: section - Present Medications Home Medications: Ambulatory Orders Medication Instructions Recorded Confirmed Buspirone HCl 10 mg PO BID 09/05/21 09/05/21 Cyclobenzaprine [Flexeril] 10 mg PO TID PRN 09/05/21 09/05/21 Escitalopram Oxalate 20 mg PO DAILY 09/05/21 09/05/21 HYDROcod/ACETAM 5/325 [[place] 5/325] 1 tablet PO Q4HR PRN 09/05/21 09/05/21 [place] 1 tab ORAL DAILY 09/05/21 09/05/21 - Allergies Allergies/Adverse Reactions: Allergies Allergy/AdvReac Type Severity Reaction Status Date / Time No Known Drug Allergies Allergy Verified 09/05/21 09:53 - Social History Does the pt smoke?: No Smoking Status: Never smoker Does the pt drink ETOH?: No Does the pt have substance abuse?: No - Immunizations Immunizations are current?: Yes PD ED PE NORMAL - General General: Alert and oriented X 3, No acute distress, Well developed/nourished - HEENT HEENT: Atraumatic, Ears normal, Moist mucous membranes, Pharynx benign - Neck Neck: Supple, no meningeal sign, No adenopathy - Cardiac Cardiac: RRR, No murmur - Respiratory Respiratory: No respiratory distress - Abdomen Abdomen: Normal bowel sounds, Soft, Non tender, Non distended - Back Back: No CVA TTP, No spinal TTP - Derm Derm: Normal color, Warm and dry, No rash - Extremities Extremities: No deformity, No tenderness to palpate, Normal ROM s pain - Neuro Neuro: Alert and oriented X 3, 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 Denying chest pain. No history of cardiac or pulmonary disorders. Non-smoker. Cardiopulmonary auscultation is unrevealing. ENT exam is also negative. I suspect she likely has a viral URI. She has tested negative for COVID at home reassuringly. Given unremarkable cardiopulmonary exam with no hypoxia and very short duration of symptoms chest x-ray imaging was deferred. She may also have seasonal allergies given the new environment. I do recommend daytime Zyrtec as well as a dose of Sudafed to help with congestion. Nighttime Benadryl can also be helpful. Discussed routine care and emergent return precautions for failure of symptoms to resolve. Departure - Departure Disposition: 01 Home, Self Care Clinical Impression: Upper respiratory infection Qualifiers: URI type: unspecified URI Qualified Code(s): J06.9 - Acute upper respiratory infection, unspecified Condition: Stable Record reviewed to determine appropriate education?: Yes Instructions: ED URI Ch Comments: Jenni you have had 2 days of cough, Congestion and nighttime vomiting after coughing. As we discussed at the bedside with the short duration of your symptoms you likely have either a viral upper respiratory infection or seasonal allergies as you are new to the [facility]. I do recommend that you take Zyrtec 10 mg daily. This will help with any component of seasonal allergies. A dose of Sudafed also available [id number] 30 mg each day will help with sinus congestion. 25 mg of Benadryl at night before bed will also act as a decongestant and antihistamine helping improve the quality your sleep. In general I would expect your symptoms to be getting better over the next 7 to 10 days. If not markedly improving, you develop fevers, have difficulty breathing have any chest pain or fainting episodes and you should return to the emergency department for a second look.
[2021-09-05 11:49] VITALS: BP 115/54
== END 2021-09-05 11:56 | disposition home or self-care (01) ==
LOC: ED 09:39
DX: J06.9 Acute upper respiratory infection, unspecified (principal)
CPT/HCPCS: 99281; 99282